=== PATIENT | male | born 2000 | race Two or more races ===

== ENCOUNTER 2020-03-19 20:10 | Emergency (ER) | payer OTHER ==
[~2020-03-19] VITALS: Ht 167.6 cm; Wt 79.0 kg
[2020-03-19 21:11] VITALS: BP 122/83
[2020-03-19] MEDS ORDERED: ACETAMINOPHEN 325MG TABLET PO ONE (21:15)
[2020-03-19] MEDS ORDERED: LIDOCAINE HCL 1% 20ML VIAL (Pyxis) INJ INFIL ONE (21:15)
[2020-03-19] MEDS ORDERED: TETANUS, DIPHTHERIA, PERTUSSIS VAC/PF 0.5ML (>7YR OLD) IM ONE (22:15)
== END 2020-03-19 22:44 | disposition home or self-care (01) ==
LOC: ER 20:10
DX: S61.210A Laceration without foreign body of right index finger without damage to nail, initial encounter (principal); W26.8XXA Contact with other sharp object(s), not elsewhere classified, initial encounter; Y93.89 Activity, other specified; Y92.89 Other specified places as the place of occurrence of the external cause; Y99.8 Other external cause status
CPT/HCPCS: 12001; 90471; 90715; 99283; J3490

== ENCOUNTER 2020-03-22 11:08 | Emergency (ER) | payer OTHER ==
[~2020-03-22] VITALS: Ht 172.7 cm; Wt 78.0 kg
[2020-03-22 12:55] VITALS: BP 150/74
== END 2020-03-22 12:56 | disposition home or self-care (01) ==
LOC: ER 11:08
DX: S61.210D Laceration without foreign body of right index finger without damage to nail, subsequent encounter (principal); Z48.00 Encounter for change or removal of nonsurgical wound dressing; X58.XXXD Exposure to other specified factors, subsequent encounter
CPT/HCPCS: 99281